=== PATIENT | male | born 1960 | race Caucasian/White ===

== ENCOUNTER 2017-02-18 11:21 | Emergency (ER) | payer OTHER ==
--- NOTE | 2017-02-18 11:51 | EDM.PDOC ---
ED HPI Trauma - General Chief Complaint: Laceration Stated Complaint: RIGHT HAND LACERATION Time Seen by Provider: 02/18/17 11:41 Source: Reports: Patient History Limitations: Reports: No limitations - History of Present Illness INITIAL COMMENTS - FREE TEXT/NARRATIVE: PT STATES HE WAS WORKING WITH POWER TOOL AND ACCIDENTLY CUT RIGHT HAND. DENIES ANY OTHER INJURY Symptom Onset Date: 02/18/17 Occurred When: just prior to arrival Occurred Where: work Method of Injury: other (POWER TOOL) Pain/Injury Location: Reports: upper extremity, right Consciousness: Reports: no loss of consciousness Associated Symptoms: Reports: no other symptoms Allergies/ADRs: Allergies No Known Drug Allergies Allergy (Verified 02/18/17 12:02) Other Home Medications: Ambulatory Orders . [No Known Home Meds] 02/18/17 [Confirmed 02/18/17] Review of Systems - Review of Systems Review Of Systems: ROS reveals no pertinent complaints other than HPI. Constitutional: Reports: no symptoms Eyes: Reports: no symptoms Ears: Reports: no symptoms Nose: Reports: no symptoms Mouth/Throat: Reports: no symptoms Respiratory: Reports: No Symptoms Cardiovascular: Reports: no symptoms GI/Abdominal: Reports: No symptoms Genitourinary: Reports: no symptoms Musculoskeletal: Reports: hand pain Skin: Reports: wound (RIGHT HAND / DORSAL ASPECT) Neurological: Reports: No Symptoms Psychiatric: Reports: no symptoms Trauma Exam - Physical Exam Exam: See Below Exam Limited By: No limitations General Appearance: Reports: alert, WD/WN, no apparent distress Head: Reports: atraumatic, normocephalic Throat/Mouth: Reports: Normal inspection, Normal oropharynx, No airway compromise Respiratory Exam: Reports: no respiratory distress Extremities: Reports: other (RIGHT ) Neurologic: Reports: normal mood/affect, oriented x 3 Skin: Reports: Normal color, Warm/dry, Other (LACERATION TO RIGHT HAND / 2 CM LINEAR) ED TRAUMA EXTREMITY PROCEDURES - Laceration/Wound Repair Right Hand Lac/wound length in cm: 2 Appearance: superficial Distal NVT: neuro & vascular intact, no tendon injury Anesthetic type: local Local anesthesia - Lidocaine (Xylocaine): 1% plain Local anesthetic volume: 2cc Skin prep: providone-iodine (betadine) Exploration/Debridement/Repair: wound explored Closed with: sutures Suture size: 4-0 # of sutures: 4 Course - Orders/Labs/Meds Orders: Active Orders 24 hr Category Date Time Status Hand 2V Rt [CR] Stat Exams 02/18/17 11:40 Ordered - Radiology Interpretation Free Text/Narrative:: HAND XRAY NEGATIVE FOR FB OR FRACTURE - Re-Assessments/Exams Free Text/Narrative Re-Assessment/Exam: 02/18/17 12:34 PT AFEBRILE, NONTOXIC APPEARING, TOLERATED PROCEDURE WELL. SUTURE OUT IN 10 DAYS Departure - Departure Time of Disposition: 12:35 Disposition: Home, Self-Care 01 Condition: good Clinical Impression: Hand laceration Instructions: Laceration Care, Adult, Sutured Wound Care, [id number] - My Orders Last 24 Hours: My Active Orders 02/18/17 11:40 Hand 2V Rt [CR] Stat - Assessment/Plan Last 24 Hours: My Active Orders 02/18/17 11:40 Hand 2V Rt [CR] Stat Assessment:: RIGHT HAND LACERATION REPAIR Plan: F/U WITH PCP IN 10 DAYS FOR SUTURE REMOVAL
[2017-02-18] MEDS ORDERED: Diphtheria,Pertussis(Acell),Tetanus Vaccine 0.5 ML SDV IM ONE (12:21)
[2017-02-18] MEDS ORDERED: Bacitracin/Neomycin/Polymyxin B Oint 0.9 GM U/D Packet ONE (12:39)
[2017-02-18] MEDS ORDERED: Bacitracin/Neomycin/Polymyxin B Oint 0.9 GM U/D Packet TOP ONE (12:53)
[2017-02-18 16:05] VITALS: BP 149/97
== END 2017-02-18 13:00 | disposition home or self-care (01) ==
LOC: KA.ED 11:21
DX: S61.411A Laceration without foreign body of right hand, initial encounter (principal); W29.8XXA Contact with other powered hand tools and household machinery, initial encounter; Y92.89 Other specified places as the place of occurrence of the external cause; Y99.0 Civilian activity done for income or pay
CPT/HCPCS: 12001; 73120-RT; 90471; 90715; 99283